=== PATIENT | male | born 1990 | race Caucasian/White ===

== ENCOUNTER 2017-05-26 16:03 | Emergency (ER) | payer BC ==
[~2017-05-26 16:03] MED LIST: ADRENALIN ONE; ATROPINE 0.1% (CARDIAC) ONE; D50W (25GM) Syringe IV ONE; SODIUM BICARBONATE IV ONE
[2017-05-26 16:26] VITALS: BP 68/36
[2017-05-26] MEDS ORDERED: NACL 0.9% 1000 ML 1,000 ML IV ONE ×2 (16:30→16:31)
[2017-05-26] MEDS ORDERED: NACL 0.9% 1000 ML 1,000 ML ONE (16:30)
[2017-05-26] MEDS ORDERED: ACTIDOSE-AQUA PO ONE (16:30)
--- NOTE | 2017-05-26 16:32 | Emergency Department Report ---
History of Present Illness - General Chief Complaint: Overdose Stated Complaint: OVERDOSE Time Seen by Provider: 05/26/17 16:26 Source: family, EMS Mode of arrival: Stretcher Limitations: Language Barrier - History of Present Illness Initial Comments: Patient is a 26-year-old HIV positive male who is presenting status post overdose. Patient does have a recent life stressor his boyfriend of several years broke up with him this morning. Patient took a stated overdose of his antiretroviral medications, Motrin, and an unknown medication that he went to [facility] this morning to obtain. Patient's ex-boyfriend called 911 because the patient was diaphoretic and not feeling well. Patient began to decline in the ambulance and has become more more unresponsive. He is still able to say his name on arrival. No other history is able to be obtained by the patient MD Complaint: intentional overdose -: This afternoon Intent: suicide attempt Context: Intentional Overdose: relationship problems Treatments Prior to Arrival: oxygen, narcan (patient was given 2 mg of Narcan IV by EMS when the patient began to become more somnolent), IV fluids - Related Data Allergies Allergy/AdvReac Type Severity Reaction Status Date / Time No Known Allergies Allergy Unverified 05/26/17 16:16 ED Review of Systems ROS: Stated complaint: OVERDOSE Other details as noted in HPI Comment: Unobtainable due to pts medical conditions ED Past Medical Hx - Past Medical History Hx HIV: Yes - Surgical History Past Surgical History?: No - Social History Smoking Status: Never Smoker Substance Use Type: None ED Physical Exam - General Limitations: Language Barrier General appearance: lethargic (patient initially was able to say his name and does have a gag reflex) - Head Head exam: Present: atraumatic, normocephalic - Eye Eye exam: Present: normal appearance Pupils: Present: normal accommodation - ENT ENT exam: Present: mucous membranes moist - Neck Neck exam: Present: normal inspection - Respiratory Respiratory exam: Present: normal lung sounds bilaterally. Absent: respiratory distress, wheezes, rales, rhonchi - Cardiovascular Cardiovascular Exam: Present: regular rate, bradycardia (heart rate in the 50s) , normal heart sounds. Absent: systolic murmur, diastolic murmur, rubs, gallop - GI/Abdominal GI/Abdominal exam: Present: soft, normal bowel sounds. Absent: distended, tenderness, guarding, rebound - Rectal Rectal exam: Present: deferred, other (patient had a large bowel movement on arrival. The feces does not appear to have blood) - exam: Present: normal inspection - Extremities Exam Extremities exam: Present: normal inspection, full ROM - Back Exam Back exam: Present: normal inspection - Neurological Exam Neurological exam: Present: alert, altered, CN II-XII intact, reflexes normal - Psychiatric Psychiatric exam: Present: depressed, homicidal ideation - Skin Skin exam: Present: dry, intact, normal color. Absent: warm (cool to touch), rash ED Course Vital Signs 05/26/17 16:16 Pulse Rate 90 Respiratory 18 Rate Blood Pressure 68/36 O2 Sat by Pulse 97 Oximetry - Reevaluation(s) Reevaluation #1: 05/26/17 19:30 On arrival patient is mental status continued to decline it was elected that we intubate the patient and place a central line. Patient blood pressure was in the 140s when EMS arrived to him he had a systolic blood pressure in the 60s on arrival. Patient was still alert and was able to say his name but was becoming more more lethargic. Please see the procedure notes Reevaluation #2: 05/26/17 19:42 Nurse's note #1 05/26/17 16:54 - Nurse Note by JOEY HUTCHISON Acct Num: [id number] : 1990 Patient Age: 26 1630 pt making snorous sounds and lifting head and immediately going back to sleep, Dr. Aranda notified 1638 NS 1000 ml administering with pressure bag 1650 atomidate administered and flushed with NS 1651 succinycholine administered and flushed with NS 1656 pt intubated 1702 cespedes catheter placed, patent draining clear yellow 1702 additional NS 1000 ml administering with pressure bag, BP 56/31 1704 Rochoronium administered and flushed 1709 Central line placed Nurse's note #2 05/26/17 17:26 - Nurse Note by JOEY HUTCHISON Acct Num: [id number] : 1990 Patient Age: 26 1723 Atropine given 1727 CPR started 1727 Epinephrine 1 mg given 1731 bicarb x2 given 1732 D50 Given 1733 Narcan 2mg given 1734 Epinephrine 1mg given 1734 NS 1000 ML given 1737 epinephrine 1 mg given 1737 Calcium given 1740 Atropine given 1741 Epi given 1741 bicarb given 1743 atropine given 1747 Epinephrine 1 mg given 1751 Noriepinephrine mcg/min started 1751 Calcium given 1752 bicarb given 1758 epinephrine given 1759 shock given at 200 joules - V fib 1800 Amioderone 200mg given 1802 shock given at 200 joules - V fib 1803 shock given at 200 joules - V fib 1804 epi given 1805 Levophed and Dopamine stopped 1806 amioderone [address] Manoj [email or web address] time of 05/26/17 19:43 Reevaluation #3: 05/26/17 19:43 Physician: Summary. Patient's blood pressure was hypotensive from unknown origin secondary to unknown overdose. Patient was intubated to protect his airway patient had a central line placed so that pressors could be started. Patient was started on dopamine and subsequently Levophed. Patient continues to decline after the central line was placed patient's bradycardia became more pronounced and pulses no longer palpable. Patient had ACLS protocols initiated. Please see nurse's notes regarding the medications given. Family was consulted several times during the code to see if anyone could give more information regarding the source of the overdose. Poison control was called during the CPR and stated that the antiretroviral is most likely not the cause of the patient's symptoms. Patient for approximately 20 minutes had no palpable pulse and blood pressure however did have some bradycardic rhythmic cardiac activity on ultrasound. This then dissipated and the patient was seen to be in V. tach. Patient shocked several times and given amiodarone with no effect. Patient was pronounced please see code sheet for the time of pronouncement patient's family was counseled and consoled. Dial Buffer has been notified. - Central Line Placement Left IJ Consent Obtained: emergent situation Time Out Performed: Yes Patient Placed on Monitor/Pulse Ox: Yes MD Prep: mask, gown, gloves Central Line Prep: Chlorhexidine scrub, sterile drapes applied Ultrasound Used for Placement: Yes Central Line Lumen Inserted: triple Central Line Position: good blood return, all ports aspirated, flus, sutured in place with 2-0 Dressing Applied: Tegaderm Patient Tolerated Procedure: well - Intubation Sedative: Etomidate Paralytic: Succinylcholine Laryngoscope: Maryse Size: 3 ET Tube Size: 8 Tube Secured Depth (cm): 22 Tube Secured Location: lips Tube Placement Confirmation: visualized tube passing t, equal breath sounds bilat, no breath sounds over epi Patient Tolerated Procedure: well Intubation Complications: none ED Medical Decision Making - Lab Data Result diagrams: 05/26/17 16:41 05/26/17 16:41 Critical care attestation.: If time is entered above; I have spent that time in minutes in the direct care of this critically ill patient, excluding procedure time. ED Disposition Clinical Impression: Cardiopulmonary arrest Suicidal overdose Qualifiers: Encounter type: initial encounter Qualified Code(s): T50.902A - Poisoning by unspecified drugs, medicaments and biological substances, intentional self-harm , initial encounter Disposition: DC-20 Is pt being admited?: No Does the pt Need Aspirin: No Condition: Stable Referrals: AMISHA DILLARD MD [Primary Care Provider] - 3-5 Days
[2017-05-26 17:28] LABS: INR 1.05 (0.87-1.13)
[2017-05-26 17:32] LABS: Hematocrit 47.9 % (35.5-45.6); Hemoglobin 15.6 gm/dl (11.8-15.2); Mean Corpuscular Hemoglobin 31 pg (28-32); Mean Corpuscular Volume 94 fl (84-94); Red Blood Count 5.09 M/mm3 (3.65-5.03)
[2017-05-26 17:33] LABS: Mean Corpuscular HGB Conc 33 % (32-34); Red Cell Distribution Width 15.3 % (13.2-15.2)
[2017-05-26 17:38] LABS: Alanine Aminotransferase 27 units/L (7-56); Albumin 3.4 g/dL (3.9-5); BUN/Creatinine Ratio 13; Blood Urea Nitrogen 14 mg/dL (9-20); Calcium 7.3 mg/dL (8.4-10.2); Hemolysis Index 21
[2017-05-26] MEDS ORDERED: LEVOPHED DRIP 4 MG/NS 250 ML 4 MG/250 ML BAG IV ONE (17:47)
[2017-05-26] MEDS ORDERED: ADRENALIN 8 MG in NACL 0.9% 250ML 242 ML IV ONE (17:52)
[2017-05-26 18:51] LABS: Anisocytosis 1+; Basophils % (Manual) 0 % (0.0-1.8); Platelet Estimate Consistent w Auto; Total Cells Counted 100
[2017-05-26 18:52] LABS: Platelet Count 81 K/mm3 (140-440)
[2017-05-26] MEDS ORDERED: AMIDATE IV ONE (22:00)
[2017-05-26] MEDS ORDERED: QUELICIN ONE (22:00)
== END 2017-05-26 20:00 ==
LOC: EEVIPCON 16:03 → ED 16:03
DX: T37.5X2A Poisoning by antiviral drugs, intentional self-harm, initial encounter (principal); I46.9 Cardiac arrest, cause unspecified; Y92.9 Unspecified place or not applicable
CPT/HCPCS: 31500; 36415; 36556; 51702; 80053; 85007; 85025; 85610; 92950; 99285; G0480; J0171; J0330; J0461; J7030; J7050; 80320